=== PATIENT | male | born 1950 | race Caucasian/White ===

== ENCOUNTER 2019-11-26 13:59 | Outpatient (CLI) | payer MEDICARE, OTHER | END 2019-11-26 14:00 | disposition critical access hospital (66) | LOC: EMS 13:59 | PROVIDERS: ATTEND Surgery | DX: R09.89 Other specified symptoms and signs involving the circulatory and respiratory systems (principal); R41.82 Altered mental status, unspecified | CPT/HCPCS: A0425; A0427 ==

== ENCOUNTER 2019-11-26 14:13 | Emergency (ER) | payer MEDICARE, OTHER ==
[2019-11-26] MEDS ORDERED: SODIUM CHLORIDE 0.9% 1,000 ML IV STA (14:15)
[2019-11-26] MEDS ORDERED: FAMOTIDINE 20 MG/2 ML SYRINGE IVP STA (14:16)
[2019-11-26] MEDS ORDERED: methylPREDNISolone SUCCINATE 125 MG/2 ML VIAL IVP STA (14:16)
--- NOTE | 2019-11-26 14:17 | ED Physician Documentation ---
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 EMS was summoned and he was significantly hypotensive, 50/40 which resolved after the epinephrine. His complaints now are feeling shaky and nauseous. Denies current feeling of throat swelling or shortness of breath. Review of Systems Constitutional: reports: Sweats. denies: Fever, Chills Cardiac: denies: Chest pain / pressure, Palpitations Respiratory: denies: Dyspnea, Cough GI: reports: Reviewed and negative PD PAST MEDICAL HISTORY - Present Medications Home Medications: Ambulatory Orders Medication Instructions Recorded Confirmed EPINEPHrine [Epinephrine] 0.3 mg IJ ONCE PRN #2 [email or web address] 11/26/19 predniSONE [Deltasone] 60 mg PO DAILY 5 Days #15 tablet 11/26/19 PD ED PE NORMAL - Vitals Vital signs reviewed: Yes - General General: Alert and oriented X 3, No acute distress - HEENT HEENT: Pharynx benign - Neck Neck: Supple, no meningeal sign, No bony TTP - Respiratory Respiratory: No respiratory distress, Clear bilaterally - Abdomen Abdomen: Non tender - Derm Derm: No rash - Neuro Neuro: Alert and oriented X 3, Normal speech Results - Vitals Vitals: Vital Signs - 24 hr 11/26/19 11/26/19 11/26/19 14:12 16:40 17:30 Temperature 36.7 C 36.6 C 37.1 C Heart Rate 66 78 79 Respiratory 20 20 20 Rate Blood Pressure 154/83 H 131/80 H 138/81 H O2 Saturation 100 96 97 Oxygen O2 Source Nasal cannula PD MEDICAL DECISION MAKING - ED course ED course: 68-year-old gentleman first seen for severe anaphylaxis with hypotension due to hymenoptera sting. He had been administered epinephrine prior to arrival as well as Benadryl. Here he also received some Pepcid and steroids. He had a prolonged observation given the severity of the anaphylaxis without recurrent symptoms. Departure - Departure Disposition: 01 Home, Self Care Clinical Impression: Bee sting-induced anaphylaxis Qualifiers: Encounter type: initial encounter Injury intent: accidental or unintentional Qualified Code(s): T63.441A - Toxic effect of venom of bees, accidental (unintentional), initial encounter Condition: Good Instructions: ED Anaphylaxis General Prescriptions: predniSONE [Deltasone] 60 mg PO DAILY 5 Days #15 tablet EPINEPHrine [Epinephrine] 0.3 mg IJ ONCE PRN #2 [email or web address] PRN Reason: Allergy Symptoms Comments: Call your doctor to arrange a follow-up appointment, make the next available appointment. In the interim, return anytime if worse or if new symptoms develop.
[2019-11-26 18:54] VITALS: BP 138/83
== END 2019-11-26 18:58 | disposition home or self-care (01) ==
LOC: ED 14:13
DX: T63.441A Toxic effect of venom of bees, accidental (unintentional), initial encounter (principal)
CPT/HCPCS: 96374; 99284